=== PATIENT | female | born 1945 | race African-American/Black ===

== ENCOUNTER 2017-03-14 16:04 | Inpatient (IN) | payer OTHER ==
[~2017-03-14] VITALS: Ht 170.2 cm; Wt 102.1 kg
[~2017-03-14 16:04] MED LIST: ALEN70TA PO; ASPI81EC30 PO; BACL10TA4 PO; CEFT1PDS43 IV; DOCU-299 PO; LEVO0.0711 PO; LISI-420 PO; LORA10TA60 PO; LYR50 PO; SIMV80TA1 PO; TRAM50TA1 PO
[2017-03-14 17:04] VITALS: BP 110/81
[2017-03-14] MEDS ORDERED: NACL 0.9% 1,000 ML IV ONE ×2 (17:15→18:20)
--- NOTE | 2017-03-14 17:15 | NUR ---
PT BIBA TO BED 5. Addendum: 03/14/17 at 1741 by MEDBECCA PT BIBA TO BED 6.
[2017-03-14] MEDS ORDERED: MELO7.5T11 PO (17:28)
[2017-03-14] MEDS ORDERED: FURO-572 PO (17:28)
[2017-03-14] MEDS ORDERED: ACET-2863 PO (17:28)
[2017-03-14] MEDS ORDERED: AMLO10TA PO (17:28)
[2017-03-14] MEDS ORDERED: CYCL10TA13 PO (17:28)
[2017-03-14] MEDS ORDERED: GABA300C PO (17:28)
[2017-03-14] MEDS ORDERED: PREG100C PO (17:28)
[2017-03-14] MEDS ORDERED: [UNRECOGNIZED DRUG - CODE] PO (17:28)
[2017-03-14] MEDS ORDERED: NAPR500T1 PO (17:28)
[2017-03-14 17:40] LABS: BASOPHILS # (AUTO) 0.4 K/uL (0.00-0.22); HEMATOCRIT 44.7 % (36-48); HEMOGLOBIN 14.1 g/dL (12.0-16.0); LYMPHOCYTES # (AUTO) 1.6 K/uL (2.5-16.5); MEAN CORPUSCULAR HEMOGLOBIN 28 pg (27-31); MEAN CORPUSCULAR HGB CONC 32 g/dL (33-37); MEAN CORPUSCULAR VOLUME 87 fL (80-94); MONOCYTES # (AUTO) 0.7 K/uL (0.8-1.0); NEUTROPHILS # (AUTO) 4.1 K/uL (1.8-7.7); PLATELET COUNT (AUTO) 415 K/uL (140-450); RED BLOOD CELL COUNT(AUTO) 5.13 MIL/uL (4.20-5.40); RED CELL DISTRIBUTION WIDTH 12.8 % (11.6-13.7); WHITE BLOOD COUNT (AUTO) 6.8 K/uL (4.8-10.8)
[2017-03-14] MEDS ORDERED: NACL 0.9% 2,000 ML IV ONE (17:50)
[2017-03-14 17:56] LABS: ANION GAP 17.2 (8-16); CARBON DIOXIDE 25.5 mmol/L (21-32); CHLORIDE 104 mmol/L (98-107); CREATININE 1.4 mg/dL (0.6-1.3); GLUCOSE 124 mg/dL (74-106); POTASSIUM 3.7 mmol/L (3.5-5.1); SODIUM SERUM 143 mmol/L (136-145); UREA NITROGEN, BLOOD 10 mg/dL (7-18)
[2017-03-14 18:10] LABS: ALBUMIN 4.4 g/dL (3.4-5.0); ASPARTATE AMINOTRANSFERASE 35 U/L (15-37); TOTAL BILIRUBIN 0.5 mg/dL (0.0-1.0)
[2017-03-14 18:15] LABS: PROTHROMBIN TIME 11.5 secs (10.8-13.4)
[2017-03-14] MEDS ORDERED: NITROGLYCERIN 2% 1 GM PKT TP ONE (18:20)
[2017-03-14] MEDS ORDERED: ASPIRIN 81 MG TAB.CHEW PO ONE (18:20)
[2017-03-14] MEDS ORDERED: CLOPIDOGREL 75 MG TAB PO ONE (18:20)
[2017-03-14] MEDS ORDERED: MORPHINE SULFATE 2 MG/ML SYR IVP ONE (18:30)
[2017-03-14] MEDS ORDERED: ACETAMINOPHEN 325 MG TAB PO PRN (19:00)
[2017-03-14] MEDS ORDERED: ONDANSETRON 4 MG/2 ML VIAL IVP PRN (19:00)
[2017-03-14] MEDS ORDERED: LORazepam 2 MG/ML VIAL IVP PRN (19:00)
[2017-03-14] MEDS ORDERED: HYDROcodone/APAP 5/325 MG 1 TAB TAB PO PRN ×2 (19:00)
[2017-03-14] MEDS ORDERED: METOPROLOL 5 MG/5 ML VIAL IV PRN (19:05)
--- NOTE | 2017-03-14 19:39 | NUR ---
Dispo and medical decision making inpatient admission for further management and care. Patient care report given to Saskia MELISSA.
--- NOTE | 2017-03-14 19:53 | NUR ---
Patient will be admitted to care of DR ARGUETA. Admited to TELE. Will go to room 111B. Belongings list completed. Report to SHIN INMAN BY REGISTRY DAY SHIN.
[2017-03-14 20:15] VITALS: BP 132/84
--- NOTE | 2017-03-14 20:15 | NUR ---
RECEIVED PT FROM ER VIA CHELI PT IS AAOX4 AMBULATORY IV ON LEFT HAND INFUSING WELL ON TELEMETRY SR DENIES ANY PAIN AT THIS TIME PT IS ORIENTED TO THE FLOOR CALL LIGHT WITHIN REAN INITIAL ASSESSMENT DONE
[2017-03-14] MEDS: NACL 0.9% 1,000 ML IV SCH (21:00)
--- NOTE | 2017-03-14 21:00 | NUR ---
AT 2100 STARTED TO INFUSED NORMAL SALINE IV AT 75 ML/H
[2017-03-14 23:11] LABS: APPEARANCE,URINE CLEAR (CLEAR); BILIRUBIN,URINE NEGATIVE (NEGATIVE); BLOOD, URINE TRACE-I (NEGATIVE); COLOR,URINE YELLOW (YELLOW); LEUKOCYTE ESTERASE ,URINE NEGATIVE (NEGATIVE); NITRITE, URINE NEGATIVE (NEGATIVE); UGLUCOSE NEGATIVE (NEGATIVE)
[2017-03-15] VITALS: BP 123/66
--- NOTE | 2017-03-15 | NUR ---
PT GETTING SLEEP DENIES ANY PAIN OR DISCOMFORT FANG TELEMETRY SR INVERTED T
[2017-03-15 01:45] LABS: CREATINE KINASE MB 4.5 ng/mL (0-3.6)
[2017-03-15 01:53] LABS: RBC,URINE 0-5 (RARE) /HPF (0-5); WBC,URINE 0-5 (RARE) /HPF (0-5)
--- NOTE | 2017-03-15 02:06 | NUR ---
CRITICAL VALUES TROPONIN # 2 = 0.256 DR JORDON Shaffer FLIGHT STEWARD WAS NOTIFY AND NOT CHANGED IN ORDER, DRY TRANSFER WORKER MAX IS HERE AND ALSO WAS NOTIFY PT DENIES ANY PAIN AND CONTINUING SLEEPING
[2017-03-15 04:00] VITALS: BP 126/60
--- NOTE | 2017-03-15 04:46 | NUR ---
SPONGE BATH GIVEN LINEN CHANGED PT VOIDING WELL NOT DISTRESS NOTED ON TELEMETRY SR DEPRESS ST WAVE
--- NOTE | 2017-03-15 06:14 | NUR ---
PT SLEEPING WELL NOT DISTRESS NOTED DENIES ANY PAIN ON TELEMETRY SR
[2017-03-15 06:45] LABS: HEMATOCRIT 36.4 % (36-48); HEMOGLOBIN 11.8 g/dL (12.0-16.0); MEAN CORPUSCULAR HEMOGLOBIN 28 pg (27-31); MEAN CORPUSCULAR HGB CONC 32 g/dL (33-37); MEAN CORPUSCULAR VOLUME 87 fL (80-94); PLATELET COUNT (AUTO) 315 K/uL (140-450); RED BLOOD CELL COUNT(AUTO) 4.21 MIL/uL (4.20-5.40); RED CELL DISTRIBUTION WIDTH 13.2 % (11.6-13.7); WHITE BLOOD COUNT (AUTO) 6.6 K/uL (4.8-10.8)
--- NOTE | 2017-03-15 06:48 | NUR ---
PT STILL INFUSING ON NORMAL SALINE SINCE LAST NIGHT STARTED AT 2100 AT 75 ML/H ON LEFT HAND
--- NOTE | 2017-03-15 07:10 | NUR ---
RECEIVED REPORT FROM NIGHT NURSE, PT IS AAOX4, ON ROOM AIR, IV TO LEFT HAND 20G INFUSING WELL, SKIN INTACT, PT STATES NO CHEST PAIN AT THIS TIME, INITIAL ASSESSMENT COMPLETED, REVIEWED PLAN OF CARE WITH PT, PT VERBALIZED UNDERSTANDING, ALL SAFETY PRECAUTIONS MET, CALL LIGHT WITHIN REACH, WILL CONTINUE TO MONITOR.
[2017-03-15 07:15] LABS: ALBUMIN 3.5 g/dL (3.4-5.0); ASPARTATE AMINOTRANSFERASE 31 U/L (15-37); CARBON DIOXIDE 25.3 mmol/L (21-32); CHLORIDE 108 mmol/L (98-107); CREATININE 0.9 mg/dL (0.6-1.3); GLUCOSE 95 mg/dL (74-106); MAGNESIUM 1.3 mg/dL (1.8-2.4); POTASSIUM 3.3 mmol/L (3.5-5.1); SODIUM SERUM 143 mmol/L (136-145); TOTAL BILIRUBIN 0.5 mg/dL (0.0-1.0); UREA NITROGEN, BLOOD 12 mg/dL (7-18)
[2017-03-15 07:51] VITALS: BP 146/83
[2017-03-15 07:54] LABS: LYMPHOCYTES % (MANUAL) 31 % (20-46); MONOCYTES % (MANUAL) 6 % (5-12)
[2017-03-15] MEDS: NACL 0.9% 1,000 ML IV SCH ×2 (08:38→20:43)
[2017-03-15] MEDS: ENOXAPARIN 40 MG/0.4 ML SYR SUBQ SCH (08:39)
--- NOTE | 2017-03-15 08:41 | NUR ---
DUE MEDICATIONS GIVEN, PT TOLERATED WELL, IVF STARTED AT THIS TIME, ALL NEEDS MET. WILL CONTINUE TO MONITOR.
--- NOTE | 2017-03-15 08:54 | NUR ---
PATIENT HAS BEEN SCREENED AND CATEGORIZED HIGH NUTRITION RISK. PATIENT WILL BE SEEN WITHIN 1-2 DAYS OF ADMISSION. 03/15/17-03/16/[address]
[2017-03-15] MEDS ORDERED: PNEUMOCOCCAL VACCINE 23 MCG/0.5 ML VIAL IMVAC SCH (09:00)
[2017-03-15] MEDS ORDERED: POTASSIUM CHLORIDE 10 MEQ TABER PO SCH (09:00)
[2017-03-15] MEDS ORDERED: MAGNESIUM OXIDE 400 MG TAB PO SCH (09:00)
[2017-03-15 11:30] LABS: CREATINE KINASE MB 4.3 ng/mL (0-3.6)
[2017-03-15 12:00] VITALS: BP 126/78
--- NOTE | 2017-03-15 12:17 | NUR ---
CHECKED IN ON PT, PT CURRENTLY RESTING, CLIN NURSE SPEC AT BEDSIDE, ALL NEEDS MET, WILL CONTINUE TO MONITOR.
--- NOTE | 2017-03-15 12:22 | NUR ---
03/15/17 RD INITIAL ASSESSMENT COMPLETED PLEASE REFER TO NUTRITION ASSESSMENT UNDER CARE ACTIVITY FOR ESTIMATED NUTRITIONAL NEEDS. 1. CONTINUE CARDIAC DIET 2. ENCOURAGE INCREASED PO INTAKE TO TOLERANCE 3. PROVIDE NUTRITION THERAPY EDUCATION NEEDED 4. RD TO FOLLOW-UP 2-3 DAYS, HIGH RISK MEENAKSHI VILLEGAS, TIERA
--- NOTE | 2017-03-15 15:40 | NUR ---
CHECKED IN ON PT, PT CURRENTLY VISITING WITH SISTER, PT STATES NO CHEST PAIN OR SOB, ALL NEEDS MET, WILL CONTINUE TO MONITOR.
[2017-03-15 15:59] VITALS: BP 122/70
--- NOTE | 2017-03-15 17:20 | NUR ---
PT CURRENTLY RESTING IN BED, NO S/S OF RESPIRATORY DISTRESS NOTED. ALL NEEDS MET. WILL CONTINUE TO MONITOR.
--- NOTE | 2017-03-15 19:30 | NUR ---
ENDORSED PLAN OF CARE TO NIGHT NURSE, PT IN STABLE CONDITION.
--- NOTE | 2017-03-15 19:33 | NUR ---
RECEIVED PT FROM JEREMY RN PT IS AAOX4 AMBULATORY ON TELE SR IV ON LEFT HAND INFUSING WELL IV FLUIDS PT DENIES ANY PAIN INITIAL ASSESSMENT DONE
--- NOTE | 2017-03-15 19:46 | NUR ---
DR JORDON Shaffer IS HERE HE IS AWARE TROPONIN RESULT AND SEE THE PT
[2017-03-15 20:00] VITALS: BP 129/68
[2017-03-15 20:38] LABS: FREE T4 (FREE THYROXINE) 1.06 ng/dL (0.76-1.46); THYROID STIMULATING HORMONE 2.61 uIU/mL (0.34-3.74)
--- NOTE | 2017-03-15 21:30 | NUR ---
PENDING AUTHORIZATION FOR CARDIAC CATH POSSIBLE [place] [facility] [place] [address] RUVALCABA Y ENTRY SPECIALIST [facility]SP[facility]
--- NOTE | 2017-03-15 22:00 | NUR ---
PT IS ASSISTED TO THE RESTROOM VOIDING WELL ON TELE SR
[2017-03-16] VITALS: BP 140/77
--- NOTE | 2017-03-16 01:00 | NUR ---
PT SLEEPING WELL DENIES ANY PAIN OR DISCOMFORT, ON TELEMETRY SR
[2017-03-16 04:00] VITALS: BP 139/65
--- NOTE | 2017-03-16 05:00 | NUR ---
PT IS ASSISTED TO THE RESTROOM VOIDING WELL DENIES ANY CHEST PAIN OR DISCOMFORT ON TELEMETRY SR
[2017-03-16 06:11] LABS: ALBUMIN 3.3 g/dL (3.4-5.0); ANION GAP 9.7 (8-16); ASPARTATE AMINOTRANSFERASE 35 U/L (15-37); CARBON DIOXIDE 27.1 mmol/L (21-32); CHLORIDE 108 mmol/L (98-107); CREATININE 0.9 mg/dL (0.6-1.3); GLUCOSE 88 mg/dL (74-106); MAGNESIUM 1.3 mg/dL (1.8-2.4); POTASSIUM 3.8 mmol/L (3.5-5.1); SODIUM SERUM 141 mmol/L (136-145); TOTAL BILIRUBIN 0.5 mg/dL (0.0-1.0); UREA NITROGEN, BLOOD 12 mg/dL (7-18)
--- NOTE | 2017-03-16 06:25 | NUR ---
PT AAOX4 AMBULATORY DENIES ANY CHEST PAIN ON TELEMETRY SR,
--- NOTE | 2017-03-16 07:15 | NUR ---
RECEIVED REPORT FROM NIGHT NURSE, PT IS AAOX4, ON ROOM AIR, IV TO LEFT HAND 20G INFUSING WELL, SKIN INTACT, NO S/S OF RESPIRATORY DISTRESS NOTED, INITIAL ASSESSMENT COMPLETED, REVIEWED PLAN OF CARE WITH PT, PT VERBALIZED UNDERSTANDING, ALL SAFETY PRECAUTIONS MET, CALL LIGHT WITHIN REACH, WILL CONTINUE TO MONITOR.
[2017-03-16 07:41] VITALS: BP 135/78
[2017-03-16] MEDS: ENOXAPARIN 40 MG/0.4 ML SYR SUBQ SCH (08:09)
--- NOTE | 2017-03-16 08:10 | NUR ---
DUE MEDICATION GIVEN, PT CURRENTLY EATING BREAKFAST, NO S/S OF SOB, PT STATES NO CHEST PAIN. ALL NEEDS MET. WILL CONTINUE TO MONITOR.
[2017-03-16] MEDS ORDERED: MAGNESIUM OXIDE 400 MG TAB PO SCH ×2 (08:55→09:00)
--- NOTE | 2017-03-16 08:57 | NUR ---
RECEIVED ORDER FOR PATIENT TO GO TO [facility] FOR CARDIAC CATH. CALL [facility] ECHOCARDIOGRAPHY RADIOLOGY TECHNOLOGIST,[phone] AND SPOKE WITH CLARA. FAXED INFORMATION AND ORDER TO HER. [place] ASH[place] [facility] [phone]. SHE GAVE ME THE AUTH FOR [facility], [id number]. THE AUTH FOR [facility] IS [id number]. I CALLED CLARA AT [facility] AND GAVE HER THE AUTH. SHE SAID TO SET UP [facility] AT 11A.M. CALLED [facility] AND SET UP TRANSPORT FOR 11A.M. ,ALS TRANSPORT. EDITH [place] MANAGEMENT ANALYST NURSE AWARE
--- NOTE | 2017-03-16 09:03 | NUR ---
FAXED INITIAL REVIEW TO [facility] [place] [phone] PHONE ASHWIN [phone]
--- NOTE | 2017-03-16 09:25 | NUR ---
GAVE REPORT TO ROSARIO MELISSA AT [facility] CARDIAC CATH. PT'S SISTER ROZINA NOTIFIED OF PT'S TRANSFER PLAN.
--- NOTE | 2017-03-16 10:45 | NUR ---
PT CURRENTLY RESTING IN BED NO S/S OF DISTRESS NOTED, ALL NEEDS MET, WILL CONTINUE TO MONITOR.
--- NOTE | 2017-03-16 11:00 | NUR ---
[facility] IN TO HALF SOLE FITTER PT, PT SIGNED ALL DISCHARGE PAPERWORK, DISCHARGE EDUCATION GIVEN, ALL PERSONAL BELONGINGS WITH PT. PT TO TRANSFER TO LOCATED WITHIN [facility] Addendum: 03/16/17 at 1146 by Sheri Bedoya RN IVF STOPPED AT THIS TIME.
--- NOTE | 2017-03-16 11:20 | NUR ---
PT WAS TRANSFER TO [facility] BY [facility] IN STABLE CONDITION. Addendum: 03/16/17 at 1137 by Sheri Bedoya RN TO PVC
== END 2017-03-16 11:20 | disposition short-term general hospital (02) | DRG 281 ==
LOC: MED 16:04 → MTU 19:03 → OBSVTOIN 03-15 20:23
PROVIDERS: ADMIT Hospitalist; ATTEND Hospitalist
PROC: 3E0234Z Introduction of Serum, Toxoid and Vaccine into Muscle, Percutaneous Approach (ICD-10-PCS; principal; 2017-03-15)
DX: I21.4 Non-ST elevation (NSTEMI) myocardial infarction (principal); N17.9 Acute kidney failure, unspecified; G62.9 Polyneuropathy, unspecified; I50.42 Chronic combined systolic (congestive) and diastolic (congestive) heart failure; I11.0 Hypertensive heart disease with heart failure; I47.1 Supraventricular tachycardia; I25.110 Atherosclerotic heart disease of native coronary artery with unstable angina pectoris; E03.9 Hypothyroidism, unspecified; F17.210 Nicotine dependence, cigarettes, uncomplicated; E78.5 Hyperlipidemia, unspecified; E66.9 Obesity, unspecified; Z68.35 Body mass index [BMI] 35.0-35.9, adult; Z88.0 Allergy status to penicillin; Z98.51 Tubal ligation status; Z23 Encounter for immunization
CPT/HCPCS: 99285; G0378; 36415; 71010; 80053; 81001; 82550; 82553; 83605; 83735; 83880; 84439; 84443; 84484; 85025; 85610; 85730; 87040; 87081; 87086; 93005; J1650; J2270; J2405; J7030; Q0092

== ENCOUNTER 2018-05-01 10:52 | Emergency (ER) | payer OTHER ==
[~2018-05-01] VITALS: Ht 180.3 cm; Wt 81.6 kg
[~2018-05-01 10:52] MED LIST changes: +AMLO10TA PO; -BACL10TA4 PO; -CEFT1PDS43 IV; +CYCL10TA13 PO; -DOCU-299 PO; +FURO-572 PO; +GABA300C PO; +HYDR-5123 PO; -LISI-420 PO; -LORA10TA60 PO; -LYR50 PO; +MELO7.5T11 PO; +NAPR-54 PO; +PREG100C PO; -TRAM50TA1 PO; +[UNRECOGNIZED DRUG - CODE] PO
--- NOTE | 2018-05-01 10:55 | NUR ---
PT AMBULATED TO ER BED 07
[2018-05-01 11:00] VITALS: BP 137/67
--- NOTE | 2018-05-01 11:03 | NUR ---
STARTED PERMETHRIN (TOP) 04/10 BY PCP
--- NOTE | 2018-05-01 11:05 | NUR ---
PT C/O LUMPS AND BEING DX WITH SCABIES FROM DOCTOR >1 WEEK AGO. PERMETHRIN PRESCRIPTION STARTED ON 04/10/2018 NOT HELPING. 12/13 PAIN. LUMPS ON NECK AND FACE MOSTLY. DENIES CP/COUGH/SOB. HX---HTN, SCABIES, HYPOTHYROIDISM
--- NOTE | 2018-05-01 11:09 | NUR ---
DR NAVARRO EVALUATING AAO PT AT BEDSIDE
[2018-05-01 11:21] VITALS: BP 131/71
--- NOTE | 2018-05-01 11:21 | NUR ---
Patient discharged with v/s stable. Written and verbal after care instructions given and explained. Patient alert, oriented and verbalized understanding of instructions. Ambulatory with steady gait. All questions addressed prior to discharge. ID band removed. Patient advised to follow up with PMD. Rx of Prednisone, Benadryl given. Patient educated on indication of medication including possible reaction and side effects. Opportunity to ask questions provided and answered.
== END 2018-05-01 11:21 | disposition home or self-care (01) ==
LOC: MED 10:52
DX: R21 Rash and other nonspecific skin eruption (principal); I10 Essential (primary) hypertension; E07.9 Disorder of thyroid, unspecified; Z88.0 Allergy status to penicillin; Z79.899 Other long term (current) drug therapy
CPT/HCPCS: 99283